=== PATIENT | female | born 1970 | race Caucasian/White ===

== ENCOUNTER → 2021-01-15 | Outpatient (CLI) | payer OTHER ==
[2021-01-17 13:11] LABS: HPV 16 Negative (Negative); HPV 18 Negative (Negative); HPV OTHER HR TYPES Negative (Negative)
== END | disposition home or self-care (01) ==
LOC: LAB SHORT 13:37 → LAB 13:37
PROVIDERS: Family Medicine
DX: Z01.419 Encounter for gynecological examination (general) (routine) without abnormal findings (principal)
CPT/HCPCS: 87624; G0123

== ENCOUNTER 2023-10-02 07:57 | Day surgery (SDC) | payer OTHER ==
[~2023-10-02] VITALS: Ht 172.7 cm; Wt 135.4 kg
[~2023-10-02 07:57] MED LIST: ATOR40TA; CYAN1000I; DULO60; FentaNYL Citrate 50 MCG/ML 2 ML Injection ONE; Lactated Ringer's 1,000 ML IV ONE; Lidocaine HCl 2% 10 ML SDA ONE; Ropivacaine 0.5% HCl/Pf 5 MG/ML 20ML VIAL ONE; propofoL 20 ML IV ONE
[2023-10-02] MEDS ORDERED: Bupivacaine 0.5% HCl 5 MG/ML 30MLVIAL ONE ×2 (07:59→10:39)
[2023-10-02] MEDS ORDERED: Midazolam HCl 1MG / ML 2ML Vial ONE (08:02)
[2023-10-02] MEDS ORDERED: CeFAZolin Sodium 3,000 MG in NS 100 ML IV SCH (08:25)
[2023-10-02] MEDS ORDERED: Lactated Ringer's 1,000 ML IV ONE (08:50)
[2023-10-02] MEDS ORDERED: Rocuronium Bromide 10 MG/ML 5ML Injection IV ONE ×2 (09:19→09:27)
[2023-10-02] MEDS ORDERED: FentaNYL Citrate 50 MCG/ML 2 ML Injection ONE ×4 (09:36→12:32)
[2023-10-02] MEDS ORDERED: Ondansetron HCl 2 MG / ML 2ML Vial ONE (09:37)
[2023-10-02] MEDS ORDERED: Dexamethasone Sod Phos 10 MG/ML 1ML VIAL ONE (09:37)
[2023-10-02] MEDS ORDERED: Labetalol HCL 5 MG/ML 4ML Injection (Single Dose) ONE (09:47)
--- NOTE | 2023-10-02 10:00 | NUR ---
10/02/23 Melani Milian 30ML OF ROPIVACAINE 0.5% MIXED AND VERIFIED WITH 0.15ML OF EPI (1MG/ML) TO MAKE ROPIVACAINE 0.5% WITH EPI 1:200,000 FOR INJECTION AT THE OPSITE BY DR BRIAN.
[2023-10-02] MEDS ORDERED: EPINEPhrine HCl 1 MG/ML 1ML Amp XX ONE (10:05)
[2023-10-02] MEDS ORDERED: HydrALAZINE HCl 20 MG / ML 1ML Vial ONE (10:20)
[2023-10-02] MEDS ORDERED: Sugammadex Sodium 200 MG/2ML SDV (100 MG/ML) ONE (10:28)
--- NOTE | 2023-10-02 11:30 | NUR ---
10/02/23 1130 Lm Cespedes FENTANYL 50MCG IV GIVEN AT 1130 FOR 6/10 PAIN TO RIGHT LEG
[2023-10-02 11:33] VITALS: BP 111/58
[2023-10-02] MEDS ORDERED: HYDROcodone 5-APAP 325 TAB ONE ×2 (12:18→12:46)
== END 2023-10-02 13:00 | disposition home or self-care (01) ==
LOC: ORSCSDS 07:57
PROVIDERS: Podiatrist Foot & Ankle Surgery
PROC: 0LQN0ZZ Repair Right Lower Leg Tendon, Open Approach (ICD-10-PCS; principal; 2023-10-02 09:15)
PROC: 0Q8M0ZZ Division of Left Tarsal, Open Approach (ICD-10-PCS; principal; 2023-10-02 09:15)
DX: M76.71 Peroneal tendinitis, right leg (principal); M21.6X1 Other acquired deformities of right foot; E78.5 Hyperlipidemia, unspecified; E66.01 Morbid (severe) obesity due to excess calories; Z68.42 Body mass index [BMI] 45.0-49.9, adult; Z79.899 Other long term (current) drug therapy
CPT/HCPCS: A9270; C1713; C1769; J0171; J0360; J0690; J1100; J2001; J2250; J2405; J2704; J2795; J3010; J7120